=== PATIENT | female | born 1985 | race Caucasian/White ===

== ENCOUNTER → 2020-07-09 | Outpatient (CLI) | payer OTHER ==
--- NOTE | 2020-07-09 15:58 | US ---
EXAMINATION TYPE: US pelvic limited DATE OF EXAM: 07/09/2020 COMPARISON: NONE CLINICAL HISTORY: R10.31 RLQ pain. Complete hysterectomy due to endometriosis TECHNIQUE: . Transabdominal sonographic images of the pelvis were acquired. EXAM MEASUREMENTS: Uterus: Surgically absent Endometrial Stripe: Surgically absent Right Ovary: Surgically absent Left Ovary: Surgically absent 1. Uterus: Surgically absent 2. Endometrium: Surgically absent 3. Right Ovary: Surgically absent 4. Left Ovary: Surgically absent 5. Bilateral Adnexa: wnl 6. Posterior cul-de-sac: wnl IMPRESSION: 1. Postsurgical changes with no adnexal mass or free fluid.
== END | disposition home or self-care (01) ==
LOC: RADUSWWP 14:58
PROVIDERS: ATTEND Internal Medicine Gastroenterology
DX: R10.31 Right lower quadrant pain (principal); Z98.890 Other specified postprocedural states
CPT/HCPCS: 76857

== ENCOUNTER → 2020-07-24 | Outpatient (CLI) | payer OTHER ==
--- NOTE | 2020-07-24 15:27 | NM ---
EXAMINATION TYPE: NM bone 3 phase DATE OF EXAM: 07/24/2020 COMPARISON: NONE HISTORY: 34 year-old female left shoulder swelling and pain. Additional low back pain. History of alexandru or fractures involving the right hand and left toe. M86.9, unspecified osteomyelitis. TECHNIQUE: Triple phase bone scintigraphy was performed following the injection of 22.5 mCi Tc 99m MD P. Immediate images and 4 hours post injection images acquired. Imaging centered over the thorax. FINDINGS: Flow images show no evident asymmetry from side to side. Limited images again show no evident asymmetry from side to side. Delayed images also fail to show any increased abnormal activity at the left shoulder. IMPRESSION: Imaging centered at the thorax. No abnormal increased activity on 3 phase bone scan with particular a ttention to the left shoulder. Consider radiographic or MRI correlation depending on indication.
== END | disposition home or self-care (01) ==
LOC: RADNMMAIN 07:27
PROVIDERS: ATTEND Family Medicine
DX: M86.9 Osteomyelitis, unspecified (principal)
CPT/HCPCS: 78315; A9503